=== PATIENT | female | born 1995 | race Native Hawaiian/Other Pacific Islander ===

== ENCOUNTER 2022-07-07 13:15 | Outpatient (CLI) | payer OTHER | END 2022-07-07 19:26 | disposition home or self-care (01) | LOC: MRI 13:15 | PROVIDERS: ATTEND Orthopaedic Surgery | DX: S83.272A Complex tear of lateral meniscus, current injury, left knee, initial encounter (principal); Y92.89 Other specified places as the place of occurrence of the external cause ==

== ENCOUNTER 2022-10-28 11:31 | Outpatient (CLI) | payer OTHER | END 2022-10-28 19:17 | disposition home or self-care (01) | LOC: RAD 11:31 | PROVIDERS: ATTEND Physician Assistant | DX: M25.562 Pain in left knee (principal) ==

== ENCOUNTER 2023-02-21 15:17 | Outpatient (CLI) | payer OTHER | END 2023-02-21 20:54 | disposition home or self-care (01) | LOC: RAD 15:17 | PROVIDERS: ATTEND Orthopaedic Surgery | DX: S82.015A Nondisplaced osteochondral fracture of left patella, initial encounter for closed fracture (principal); Y92.89 Other specified places as the place of occurrence of the external cause ==

== ENCOUNTER 2023-03-28 13:49 | Outpatient (CLI) | payer OTHER | END 2023-03-28 19:11 | disposition home or self-care (01) | LOC: RAD 13:49 | PROVIDERS: ATTEND Orthopaedic Surgery | DX: M25.562 Pain in left knee (principal) ==